=== PATIENT | female | born 1990 | race African-American/Black ===

== ENCOUNTER 2019-05-16 23:55 | Emergency (ER) | payer OTHER ==
[~2019-05-16] VITALS: Ht 167.6 cm; Wt 117.9 kg
[2019-05-17] MEDS: Albuterol ud Inhalation HHN SCH ×3 (00:28→00:50)
[2019-05-17] MEDS: Ipratropium 0.02% Inh Soln 2.5ml UD HHN SCH ×3 (00:28→00:50)
[2019-05-17 00:38] VITALS: BP 105/70
--- NOTE | 2019-05-17 00:39 | NUR ---
ED Nurse Note: Patient walked in to ER due top SOB. AAO x4, VSS at this time. Patient presented with non-labored breathing, O2 sat 98 % on RA.
--- NOTE | 2019-05-17 00:47 | Emergency Room Report ---
History of Present Illness General Chief Complaint: Asthma Source: Patient Present Illness HPI 28-year-old female history of asthma presents with acute shortness of breath, patient 05/11/2019 was seen in ED prescribed prednisone, patient states she still feels difficulty breathing, no nausea no vomiting no chest pain, she states is very difficult to get a deep breath in, she has been taking the steroids and using the inhaler at home. She said severity is moderate, no aggravating factors alleviated with albuterol. Allergies: Coded Allergies: No Known Allergies (Unverified , 05/17/19) Patient History Past Medical History: see triage record Last Menstrual Period: 04/2019 Now: No Reviewed Nursing Documentation: PMH: Agreed; PSxH: Agreed Nursing Documentation-PMH Hx Asthma: Yes Review of Systems All Other Systems: negative except mentioned in HPI Physical Exam Vital Signs Date Time Temp Pulse Resp B/P (MAP) Pulse Ox O2 Delivery O2 Flow Rate FiO2 05/16/19 23:58 98.1 88 18 105/70 (82) 98 Room Air 05/17/19 00:28 21 Sp02 EP Interpretation: reviewed, normal General Appearance: well appearing, no apparent distress, alert Head: normocephalic, atraumatic Eyes: bilateral eye PERRL, bilateral eye EOMI ENT: uvula midline, moist mucus membranes Neck: supple, thyroid normal, supple/symm/no masses Respiratory: no respiratory distress, no retraction, no accessory muscle use, decreased breath sounds - Bilaterally Cardiovascular #1: normal peripheral pulses, regular rate, rhythm, no edema, no gallop, no murmur Gastrointestinal: non tender, soft, no guarding, no rebound Musculoskeletal: normal inspection Neurologic: alert, oriented x3 Psychiatric: mood/affect normal Skin: no rash, warm/dry Medical Decision Making Diagnostic Impression: Primary Impression: Asthma Qualified Codes: J45.41 - Moderate persistent asthma with (acute) exacerbation ER Course She most likely has acute asthma exacerbation Chest x-ray shows no acute cardio pulmonary processes, DuoNeb's divided, and felt better after DuoNeb administration, lungs opened up, wheezing markedly improved. Counseled patient, disposition home with return precautions EKG Diagnostic Results EKG Time: 00:14 EP Interpretation: NSR, rate 95, QTc 424, no acute ST elevations, normal axis Rate: normal Rhythm: NSR ST Segments: no acute changes Chest X-Ray Diagnostic Results Chest X-Ray Diagnostic Results : Chest X-Ray Ordered: Yes # of Views/Limited/Complete: 1 View Indication: Shortness of Breath EP Interpretation: Yes Interpretation: no consolidation, no effusion, no pneumothorax, no acute cardiopulmonary disease Impression: No acute disease Electronically Signed by: Vincenzo Goins MD Last Vital Signs Date Time Temp Pulse Resp B/P (MAP) Pulse Ox O2 Delivery O2 Flow Rate FiO2 05/17/19 00:38 98.1 18 105/70 100 Room Air 21 05/17/19 00:38 84 Disposition: HOME, SELF-CARE Condition: Stable Scripts Albuterol Sulfate* (ALBUTEROL SULFATE MDI*) 8.5 Gm Hfa.aer.ad 2 PUFF INH Q4H PRN for cough/wheezing, #1 EA 0 Refills Prov: Vincenzo Goins MD 05/17/19 Referrals: [facility] Patient Instructions: Asthma, Adult Additional Instructions: The patient was provided with discharge instructions, notified to follow-up with a primary care doctor and or specialist in the next 24-48 hours, and to return to the ED if they have worsening of their symptoms. Please note that this report is being documented using WeGoOut technology. This can lead to erroneous entry secondary to incorrect interpretation by the dictating instrument. Vincenzo Goins MD May 17, 2019 00:47
[2019-05-17] MEDS ORDERED: ALBUTEROL SULF8.5 GM INH (01:13)
[2019-05-17 01:20] VITALS: BP 125/65
--- NOTE | 2019-05-17 02:03 | Diagnostic Imaging Report ---
EXAM: XR Chest, 1 View CLINICAL HISTORY: DYSPNEA TECHNIQUE: Frontal view of the chest. COMPARISON: No relevant prior studies available. FINDINGS/IMPRESSION: No cardiomegaly. There is summation at lung bases. Increased density at lung bases is felt to represent summation with overlying soft tissues. No edema, consolidation or other acute cardiopulmonary findings.
--- NOTE | 2019-05-17 05:12 | NUR ---
ER DISCHARGE NOTE: Patient is cleared to be discharged per ERMD, pt is aox4, on room air, with stable vital signs. pt was given dc and prescription instructions, pt was able to verbalize understanding, pt id band and iv site removed without complications. pt is able to ambulate with steady gait. pt took all belongings.
--- NOTE | 2019-05-18 12:47 | Cardiology Report ---
APPROVED REPORT EKG Measurement Heart [id number] Normal sinus rhythm Right atrial enlargement Nonspecific T wave abnormality Abnormal ECG
== END 2019-05-17 01:20 | disposition home or self-care (01) ==
LOC: EMR 05-17 00:15
DX: J45.41 Moderate persistent asthma with (acute) exacerbation (principal)
CPT/HCPCS: 71045; 93005; 94640; 96360; 99284

== ENCOUNTER 2019-07-12 13:32 | Emergency (ER) | payer MEDICAID, OTHER ==
[~2019-07-12] VITALS: Ht 167.6 cm; Wt 119.3 kg
[~2019-07-12 13:32] MED LIST: ALBUTEROL SULF8.5 GM INH
[2019-07-12 13:54] VITALS: BP 95/72
--- NOTE | 2019-07-12 13:55 | NUR ---
pt ED Nurse Note: pt presents to ED with N/V x 1 month. pt reports that she is 10 weeks and that her RIB BUILDER prescribed her 10 mg of Reglan that she has been taking for N/V but it has stopped working so she hasn't taken it for 3 days. pt also reports being constipated, she was only able to have a small BM a couple days ago. pt last ate some fruit this AM but has otherwise villeda not been able to keep food down. she also reports some throat discomfort from all the vomiting and that the vomitus "appears bloody." pt denies any pain or vaginal bleeding at this time.
[2019-07-12 14:55] LABS: BASOPHILS % (AUTO) 1.2 % (0.0-2.0); HEMATOCRIT 39.9 % (37.0-47.0); HEMOGLOBIN 13.4 G/DL (12.0-16.0); LYMPHOCYTES % (AUTO) 28.8 % (20.0-45.0); MEAN CORPUSCULAR VOLUME 81 FL (80-99); MONOCYTES % (AUTO) 6.2 % (1.0-10.0); NEUTROPHILS % (AUTO) 62.9 % (45.0-75.0); PLATELET COUNT 279 K/UL (150-450); RED BLOOD COUNT 4.95 M/UL (4.20-5.40); RED CELL DISTRIBUTION WIDTH 11.9 % (11.6-14.8); WHITE BLOOD COUNT 5.4 K/UL (4.8-10.8)
[2019-07-12 14:59] LABS: ANION GAP 6 mmol/L (5-15); BLOOD UREA NITROGEN 6 mg/dL (7-18); CALCIUM 9.6 MG/DL (8.5-10.1); CARBON DIOXIDE 27 MMOL/L (21-32); CHLORIDE 103 MMOL/L (98-107); CREATININE 0.6 MG/DL (0.55-1.30); POTASSIUM 3.8 MMOL/L (3.5-5.1); SODIUM 136 MMOL/L (136-145)
[2019-07-12 15:03] LABS: ALANINE AMINOTRANSFERASE 23 U/L (12-78); ALBUMIN 3.1 G/DL (3.4-5.0); ALBUMIN/GLOBULIN RATIO 0.6 (1.0-2.7); ALKALINE PHOSPHATASE 53 U/L (46-116); ASPARTATE AMINO TRANSFERASE 17 U/L (15-37); BILIRUBIN,TOTAL 0.5 MG/DL (0.2-1.0)
[2019-07-12 15:28] LABS: APPEARANCE,URINE CLEAR; BILIRUBIN, URINE NEGATIVE (NEGATIVE); GLUCOSE, URINE (UA) NEGATIVE (NEGATIVE); KETONES,URINE NEGATIVE (NEGATIVE); LEUKOCYTE ESTERASE ,URINE 1+ (NEGATIVE); NITRITE,URINE NEGATIVE (NEGATIVE); PH,URINE 6 (4.5-8.0); PROTEIN,URINE NEGATIVE (NEGATIVE); UROBILINOGEN,URINE NORMAL MG/DL (0.0-1.0)
[2019-07-12 15:34] LABS: COLOR,URINE YELLOW
[2019-07-12] MEDS ORDERED: ONDANSETRON ODT4 MG BC (15:56)
[2019-07-12] MEDS ORDERED: PEPCID AC20 M2 PO (15:56)
[2019-07-12 16:02] VITALS: BP 111/59
[2019-07-12 16:10] VITALS: BP 118/52
--- NOTE | 2019-07-12 17:09 | Emergency Room Report ---
History of Present Illness General Chief Complaint: Vomiting Source: Patient Present Illness HPI 28-year-old G2, P0 presents ED for evaluation. Complaining of vomiting. States that she is about 10 weeks confirmed on ultrasound. Has care. States she is been having multiple bouts of vomiting during this . Was prescribed Reglan by her CLOCK ASSEMBLER but states it is not helping. States in the last few days she started nose notice specks of blood her vomit. denies any abdominal pain. Denies any vaginal bleeding. No other aggravating relieving factors. Denies any other associated symptoms Allergies: Coded Allergies: No Known Allergies (Unverified , 05/17/19) Patient History Past Medical History: asthma Past Surgical History: none Pertinent Family History: none Social History: Denies: smoking, alcohol use, drug use Last Menstrual Period: 03/2019 Now: Yes - 10 weeks : 2 Para: 0 Immunizations: UTD Reviewed Nursing Documentation: PMH: Agreed; PSxH: Agreed Nursing Documentation-PMH Hx Asthma: Yes Review of Systems All Other Systems: negative except mentioned in HPI Physical Exam Vital Signs Date Time Temp Pulse Resp B/P (MAP) Pulse Ox O2 Delivery O2 Flow Rate FiO2 07/12/19 13:50 98.1 99 18 95/72 (80) 96 Room Air Sp02 EP Interpretation: reviewed, normal General Appearance: no apparent distress, alert, GCS 15, non-toxic Head: normocephalic, atraumatic Eyes: bilateral eye normal inspection, bilateral eye PERRL ENT: hearing grossly normal, normal pharynx, no angioedema, normal voice Neck: full range of motion, supple/symm/no masses Respiratory: chest non-tender, lungs clear, normal breath sounds, speaking full sentences Cardiovascular #1: regular rate, rhythm, no edema Cardiovascular #2: 2+ carotid (R), 2+ carotid (L), 2+ radial (R), 2+ radial (L) , 2+ dorsalis pedis (R), 2+ dorsalis pedis (L) Gastrointestinal: normal bowel sounds, non tender, soft, non-distended, no guarding, no rebound Rectal: deferred Genitourinary: normal inspection, no CVA tenderness Musculoskeletal: back normal, gait/station normal, normal range of motion, non- tender Neurologic: alert, oriented x3, responsive, motor strength/tone normal, sensory intact, speech normal Psychiatric: judgement/insight normal, memory normal, mood/affect normal, no suicidal/homicidal ideation Reflexes: 3+ bicep (R), 3+ bicep (L), 3+ tricep (R), 3+ tricep (L), 3+ knee (R) , 3+ knee (L) Lymphatic: no adenopathy Medical Decision Making Diagnostic Impression: Primary Impression: Vomiting during ER Course Hospital Course 28 yo F presents with multiple episodes vomiting. 10 weeks differential diagnosis: gastritis, hypermesis gravidum, dehydration, UTI Clinical course Patient placed on stretcher. On television writer. After initial history and physical I ordered labs, IV fluids, Zofran and pepcid Labs - no leukocytosis, no electrolyte abnormalities, LFTs normal, UA unremarkable Reassessment patient states that she feels better. Tolerating p.o. intake in ED. Discussed findings with patient. Will discharge to home with prescription for Zofran and Pepcid. States she will follow-up with her PMD/CLOCK ASSEMBLER I feel this is a highly complex case requiring extensive working including EKG/ Rhythm strip, Xray/CT/US, Blood/urine lab work, repeat exams while in ED, and administration of strong opiates/narcotics for pain control, admission to hospital or close patient follow up. Diagnosis - vomiting during Stable and discharged to home with prescriptions for pepcid and zofran. Followup with PMD/OBGYN. Return to ED if symptoms recur or worsen Labs Test 07/12/19 14:18 07/12/19 14:56 White Blood Count 5.4 K/UL (4.8-10.8) Red Blood Count 4.95 M/UL (4.20-5.40) Hemoglobin 13.4 G/DL (12.0-16.0) Hematocrit 39.9 % (37.0-47.0) Mean Corpuscular Volume 81 FL (80-99) Mean Corpuscular Hemoglobin 27.0 PG (27.0-31.0) Mean Corpuscular Hemoglobin Concent 33.5 G/DL (32.0-36.0) Red Cell Distribution Width 11.9 % (11.6-14.8) Platelet Count 279 K/UL (150-450) Mean Platelet Volume 6.8 FL (6.5-10.1) Neutrophils (%) (Auto) 62.9 % (45.0-75.0) Lymphocytes (%) (Auto) 28.8 % (20.0-45.0) Monocytes (%) (Auto) 6.2 % (1.0-10.0) Eosinophils (%) (Auto) 1.0 % (0.0-3.0) Basophils (%) (Auto) 1.2 % (0.0-2.0) Sodium Level 136 MMOL/L (136-145) Potassium Level 3.8 MMOL/L (3.5-5.1) Chloride Level 103 MMOL/L (98-107) Carbon Dioxide Level 27 MMOL/L (21-32) Anion Gap 6 mmol/L (5-15) Blood Urea Nitrogen 6 mg/dL (7-18) Creatinine 0.6 MG/DL (0.55-1.30) Estimat Glomerular Filtration Rate > 60 mL/min (>60) Glucose Level 108 MG/DL (74-106) Calcium Level 9.6 MG/DL (8.5-10.1) Total Bilirubin 0.5 MG/DL (0.2-1.0) Aspartate Amino Transf (AST/SGOT) 17 U/L (15-37) Alanine Aminotransferase (ALT/SGPT) 23 U/L (12-78) Alkaline Phosphatase 53 U/L (46-116) Total Protein 8.1 G/DL (6.4-8.2) Albumin 3.1 G/DL (3.4-5.0) Globulin 5.0 g/dL Albumin/Globulin Ratio 0.6 (1.0-2.7) Lipase 75 U/L (73-393) Human Chorionic Gonadotropin, Quant 75914 mIU/mL (1-6) Urine Color Yellow Urine Appearance Clear Urine pH 6 (4.5-8.0) Urine Specific Withams 1.010 (1.005-1.035) Urine Protein Negative (NEGATIVE) Urine Glucose (UA) Negative (NEGATIVE) Urine Ketones Negative (NEGATIVE) Urine Blood 1+ (NEGATIVE) Urine Nitrite Negative (NEGATIVE) Urine Bilirubin Negative (NEGATIVE) Urine Urobilinogen Normal MG/DL (0.0-1.0) Urine Leukocyte Esterase 1+ (NEGATIVE) Urine RBC 5-10 /HPF (0 - 2) Urine WBC 2-4 /HPF (0 - 2) Urine Squamous Epithelial Cells Few /LPF (NONE/OCC) Urine Bacteria Few /HPF (NONE) Urine HCG, Qualitative Positive (NEGATIVE) Last Vital Signs Date Time Temp Pulse Resp B/P (MAP) Pulse Ox O2 Delivery O2 Flow Rate FiO2 07/12/19 16:10 98.1 80 19 118/52 100 Room Air Status: improved Disposition: HOME, SELF-CARE Condition: Stable Scripts Famotidine (PEPCID AC) 20 Mg Tablet 20 MG PO DAILY, #30 TAB Prov: John Chery MD 07/12/19 Ondansetron Odt* (ZOFRAN ODT*) 4 Mg Tab.rapdis 4 MG BC EVERY 6 HOURS PRN for Nausea & Vomiting, #20 TAB 0 Refills Prov: John Chery MD 07/12/19 Patient Instructions: Hyperemesis Gravidarum John Chery MD Jul 12, 2019 17:08
== END 2019-07-12 16:10 | disposition home or self-care (01) ==
LOC: EMR 14:30
DX: O21.9 Vomiting of pregnancy, unspecified (principal); Z3A.10 10 weeks gestation of pregnancy; J45.909 Unspecified asthma, uncomplicated
CPT/HCPCS: 36415; 80053; 81003; 81025; 83690; 84702; 85025; 96361; 96374; 96375; J2405; S0028; Z7502; 99284; J7030

== ENCOUNTER 2019-08-16 12:56 | Emergency (ER) | payer MEDICAID ==
[~2019-08-16] VITALS: Ht 167.6 cm; Wt 106.6 kg
[~2019-08-16 12:56] MED LIST changes: +ONDANSETRON ODT4 MG BC; +PEPCID AC20 M2 PO
[2019-08-16] MEDS ORDERED: Metoclopramide 10mg/2ml Inj IVP ONE (13:15)
--- NOTE | 2019-08-16 13:26 | Emergency Room Report ---
History of Present Illness General Chief Complaint: Complications Source: Patient (Muriel Holguin) Present Illness HPI 28-year-old female with no significant past medical history other than asthma who is G2, , is with history of 1 miscarriage at 5 weeks, here reporting that she is 15 weeks and started having chest pain 3 days ago. Patient reports that chest pain started as she was lying down and changing sides the pain is radiating to the back however denies pain radiation to arm or jaw. Denies history of cardiac issues. Rating her pain 10 out of 10 intermittent and sharp. Has not taken medication for symptom relief. Also reports that she started having lower abdominal cramping this morning however denies vaginal discharge. Patient was last sexually active 1 week ago with same partner. Denies changes in urination, blood in urine, vaginal clotting, diarrhea constipation at this time. Denies blood in her stool. Reports that she has been dealing with lots of vomiting throughout her and takes daily dose of medication. Is compliant with taking her vitamins. Denies fever and chills, fall or injury. Last saw her CYBER SECURITY SYSTEMS ENGINEER on August 04 and reports that everything was within normal limits. Patient has stable vital signs and in no apparent distress. Patient denies leg cramping and tightness, denies shortness of breath when walking. Complains of pleuritic chest pain. Patient is morbidly obese. (Muriel Holguin) Allergies: Coded Allergies: No Known Allergies (Unverified , 05/17/19) Patient History Past Medical History: see triage record Past Surgical History: unable to obtain Pertinent Family History: none Last Menstrual Period: 04/30/2019 Now: Yes : 2 Para: 0 Immunizations: UTD Reviewed Nursing Documentation: PMH: Agreed; PSxH: Agreed (Muriel Holguin) Nursing Documentation-PMH Past Medical History: No History, Except For Hx Cardiac Problems: No Hx Hypertension: No Hx Pacemaker: No Hx Asthma: Yes Hx COPD: No Hx Diabetes: No Hx Cancer: No Hx Gastrointestinal Problems: No Hx Dialysis: No History Of Psychiatric Problem: No Hx Neurological Problems: No Hx Cerebrovascular Accident: No Hx Seizures: No (Muriel Holguin) Review of Systems All Other Systems: negative except mentioned in HPI (Muriel Holguin) Physical Exam Vital Signs Date Time Temp Pulse Resp B/P (MAP) Pulse Ox O2 Delivery O2 Flow Rate FiO2 08/16/19 13:11 98.2 103 16 114/70 (85) 96 Room Air Sp02 EP Interpretation: reviewed, normal General Appearance: no apparent distress, alert, GCS 15, non-toxic Head: normocephalic, atraumatic Eyes: bilateral eye normal inspection, bilateral eye PERRL ENT: hearing grossly normal, normal pharynx, no angioedema, normal voice Neck: full range of motion, supple, thyroid normal, no meningismus, supple/symm /no masses Respiratory: chest non-tender, lungs clear, normal breath sounds, no rhonchi, no respiratory distress, no retraction, no wheezing, speaking full sentences Cardiovascular #1: regular rate, rhythm, no edema, no gallop, no JVD, no murmur , no rub, normal capillary refill Cardiovascular #2: 2+ radial (R), 2+ radial (L), 2+ dorsalis pedis (R), 2+ dorsalis pedis (L) Gastrointestinal: normal bowel sounds, non tender, soft, non-distended, no guarding, no rebound Rectal: deferred Genitourinary: normal inspection, no CVA tenderness Musculoskeletal: back normal, normal range of motion, no calf tenderness, gait/ station normal, non-tender Neurologic: alert, motor strength/tone normal, oriented x3, sensory intact, responsive, speech normal Psychiatric: judgement/insight normal, memory normal, mood/affect normal, no suicidal/homicidal ideation Skin: no rash Lymphatic: no adenopathy (Muriel Holguin) Medical Decision Making PA Attestation All my diagnosis and treatment plans were reviewed ad discussed with my supervising physician Dr. Jones (Muriel Holguin) Diagnostic Impression: Primary Impression: Pleuritic chest pain Additional Impressions: Abdominal pain during Left against medical advice ER Course 28-year-old female with no significant past medical history other than asthma who is G2, , is with history of 1 miscarriage at 5 weeks, here reporting that she is 15 weeks and started having chest pain 3 days ago. Patient reports that chest pain started as she was lying down and changing sides the pain is radiating to the back however denies pain radiation to arm or jaw. Denies history of cardiac issues. Rating her pain 10 out of 10 intermittent and sharp. Has not taken medication for symptom relief. Also reports that she started having lower abdominal cramping this morning however denies vaginal discharge. Patient was last sexually active 1 week ago with same partner. Denies changes in urination, blood in urine, vaginal clotting, diarrhea constipation at this time. Denies blood in her stool. Reports that she has been dealing with lots of vomiting throughout her and takes daily dose of medication. Is compliant with taking her vitamins. Denies fever and chills, fall or injury. Last saw her CYBER SECURITY SYSTEMS ENGINEER on August 04 and reports that everything was within normal limits. Patient has stable vital signs and in no apparent distress. Patient denies leg cramping and tightness, denies shortness of breath when walking. Complains of pleuritic chest pain. Patient is morbidly obese. Ddx considered but are not limited to: Pulmonary embolism, chest pain unspecified, AR, congestive heart failure, hypertension during , uterine bleeding during , ectopic , threatened , spontaneous , abdominal pain during Vital signs: are WNL, pt. is afebrile H&PE are most consistent with: pleuritic chest pain, abdominal pain during ORDERS: CBC, CMP, UA, beta-hCG, chest pain work-up, OB ultrasound, venous duplex ultrasound, d-dimer, troponin, BNP, CTA was originally ordered after consulting with . After my medical discussion with Dr Jones, due to patient morbid obesity, status, pleuritic chest pain, d-dimer of 0.85 , and BNP of 350 it was decided to have imaging done to rule out pulmonary embolism however VQ scan is not available at this time and patient is a candidate for CT angiogram with contrast. Patient was explained the risks of getting a CT angiogram as well as the risks of not getting the CT angiogram and decided to sign AGAINST MEDICAL ADVICE after consulting with her CYBER SECURITY SYSTEMS ENGINEER over the phone patient is going back to [facility] to see her regular doctor patient has full judgment, in no apparent distress, and not under the influence of any substances or alcohol when making this judgment. ED INTERVENTIONS: NS bolus, Reglan DISCHARGE: At this time pt. is stable for d/c to home. Will provide printed patient care instructions, and any necessary prescriptions. Care plan and follow up instructions have been discussed with the patient prior to discharge. Patient left AGAINST MEDICAL ADVICE (Muriel Holguin) ER Course Patient initially refused CTA. I discussed risks and benefits with the patient of CTA. I told her that there is a risk of if we do not know that she does not have a blood clot. She discussing this with her significant other. Patient stated she had more questions. I answered her questions. She wanted a second opinion. I stated that there were no other doctors here. I still felt that she needed to have a CT angiogram and explained risks of if she did not have this test done. She is refusing to have the CT angiogram done and is signing out AGAINST MEDICAL ADVICE. Given labs, EKG and u/s results. (Marcio Jones MD) EKG Diagnostic Results Rate: normal Rhythm: NSR ST Segments: no acute changes Other Impression No acute ST changes (Muriel Holguin) CT/MRI/US Diagnostic Results CT/MRI/US Diagnostic Results #1: Imaging Test Ordered: OB US Impression FINDINGS: Limitations: Limited anatomic survey. Gestation: Viable IUP measuring 16 weeks 4 days by ultrasound measurements. heart rate of 148 beats/minute. Placenta/amniotic fluid: Placenta is posterior and fundal. No retroplacental hemorrhage. Uterus/cervix: Uterus measures 14.3 x 6.8 x 9.7 cm. Ovaries: Right ovary measures 4.5 x 1.9 cm. Left ovary not well visualized. IMPRESSION: Viable IUP measuring 16 weeks 4 days by ultrasound measurements. CT/MRI/US Diagnostic Results #2: Imaging Test Ordered: venous duplex Bilateral LE Impression FINDINGS: Right deep veins: Unremarkable. No DVT in the right common femoral, femoral, proximal deep femoral or popliteal veins. The veins demonstrate normal color flow, are normally compressible, with normal phasic flow and/or augmentation response. Right superficial veins: Unremarkable. No thrombus in the visualized right great saphenous vein. Left deep veins: Unremarkable. No DVT in the left common femoral, femoral, proximal deep femoral or popliteal veins. The veins demonstrate normal color flow, are normally compressible, with normal phasic flow and/or augmentation response. Left superficial veins: Unremarkable. No thrombus in the visualized left great saphenous vein. Soft tissues: No acute findings. IMPRESSION: No DVT demonstrated. (Muriel Holguin) Last Vital Signs Date Time Temp Pulse Resp B/P (MAP) Pulse Ox O2 Delivery O2 Flow Rate FiO2 08/16/19 13:11 98.2 103 16 114/70 (85) 96 Room Air (Muriel Holguin) Last Vital Signs Date Time Temp Pulse Resp B/P (MAP) Pulse Ox O2 Delivery O2 Flow Rate FiO2 08/16/19 17:58 98.0 78 16 118/71 99 Room Air Status: improved (Marcio Jones MD) Disposition: AGAINST MEDICAL ADVICE Condition: Serious Muriel Holguin Aug 16, 2019 13:26 Marcio Jones MD Aug 16, 2019 16:28
[2019-08-16 14:07] LABS: BASOPHILS % (AUTO) 0.8 % (0.0-2.0); EOSINOPHILS % (AUTO) 0.8 % (0.0-3.0); HEMOGLOBIN 12.3 G/DL (12.0-16.0); LYMPHOCYTES % (AUTO) 23.8 % (20.0-45.0); MEAN CORPUSCULAR VOLUME 80 FL (80-99); MONOCYTES % (AUTO) 5.4 % (1.0-10.0); NEUTROPHILS % (AUTO) 69.2 % (45.0-75.0); PLATELET COUNT 282 K/UL (150-450); RED BLOOD COUNT 4.53 M/UL (4.20-5.40); WHITE BLOOD COUNT 6.7 K/UL (4.8-10.8)
[2019-08-16 14:19] LABS: ANION GAP 5 mmol/L (5-15); BLOOD UREA NITROGEN 6 mg/dL (7-18); CALCIUM 8.9 MG/DL (8.5-10.1); CARBON DIOXIDE 27 MMOL/L (21-32); CHLORIDE 103 MMOL/L (98-107); CREATININE 0.6 MG/DL (0.55-1.30); SODIUM 135 MMOL/L (136-145)
[2019-08-16 14:24] LABS: ALANINE AMINOTRANSFERASE 21 U/L (12-78); ALBUMIN 2.6 G/DL (3.4-5.0); ALBUMIN/GLOBULIN RATIO 0.6 (1.0-2.7); ALKALINE PHOSPHATASE 50 U/L (46-116); ASPARTATE AMINO TRANSFERASE 18 U/L (15-37); BILIRUBIN,TOTAL 0.4 MG/DL (0.2-1.0)
[2019-08-16 15:26] VITALS: BP 120/76
[2019-08-16] MEDS ORDERED: Omnipaue 350mg/ml 100ml vial INJ PRN (15:30)
--- NOTE | 2019-08-16 15:44 | Diagnostic Imaging Report ---
EXAM: US Duplex Bilateral Lower Extremity Veins CLINICAL HISTORY: DVT TECHNIQUE: Real-time duplex ultrasound scan of the bilateral lower extremity veins integrating B-mode two-dimensional vascular structure, Doppler spectral analysis, color flow Doppler imaging and compression. COMPARISON: No relevant prior studies available. FINDINGS: Right deep veins: Unremarkable. No DVT in the right common femoral, femoral, proximal deep femoral or popliteal veins. The veins demonstrate normal color flow, are normally compressible, with normal phasic flow and/or augmentation response. Right superficial veins: Unremarkable. No thrombus in the visualized right great saphenous vein. Left deep veins: Unremarkable. No DVT in the left common femoral, femoral, proximal deep femoral or popliteal veins. The veins demonstrate normal color flow, are normally compressible, with normal phasic flow and/or augmentation response. Left superficial veins: Unremarkable. No thrombus in the visualized left great saphenous vein. Soft tissues: No acute findings. IMPRESSION: No DVT demonstrated.
[2019-08-16 15:51] LABS: APPEARANCE,URINE CLEAR; BILIRUBIN, URINE NEGATIVE (NEGATIVE); COLOR,URINE PALE YELLOW; GLUCOSE, URINE (UA) NEGATIVE (NEGATIVE); KETONES,URINE NEGATIVE (NEGATIVE); LEUKOCYTE ESTERASE ,URINE NEGATIVE (NEGATIVE); NITRITE,URINE NEGATIVE (NEGATIVE); PH,URINE 8 (4.5-8.0); PROTEIN,URINE NEGATIVE (NEGATIVE); UROBILINOGEN,URINE 1 MG/DL (0.0-1.0)
--- NOTE | 2019-08-16 16:27 | Diagnostic Imaging Report ---
EXAM: US First Trimester, Transabdominal CLINICAL HISTORY: PAIN TECHNIQUE: Real-time transabdominal obstetrical ultrasound of the maternal pelvis and a first trimester with image documentation. COMPARISON: No relevant prior studies available. FINDINGS: Limitations: Limited anatomic survey. Gestation: Viable IUP measuring 16 weeks 4 days by ultrasound measurements. heart rate of 148 beats/minute. Placenta/amniotic fluid: Placenta is posterior and fundal. No retroplacental hemorrhage. Uterus/cervix: Uterus measures 14.3 x 6.8 x 9.7 cm. Ovaries: Right ovary measures 4.5 x 1.9 cm. Left ovary not well visualized. IMPRESSION: Viable IUP measuring 16 weeks 4 days by ultrasound measurements.
[2019-08-16 17:58] VITALS: BP 118/71
== END 2019-08-16 17:58 | disposition left against medical advice (07) ==
LOC: EMR 13:30
DX: O26.892 Other specified pregnancy related conditions, second trimester (principal); Z3A.15 15 weeks gestation of pregnancy; R10.9 Unspecified abdominal pain; R07.9 Chest pain, unspecified; O21.9 Vomiting of pregnancy, unspecified
CPT/HCPCS: 36415; 76805; 80053; 81003; 83880; 84484; 84702; 85025; 85379; 86850; 86900; 86901; 93005; 93970; 96361; 96374; 96375; J2765; J7030; S0028; Z7502; 99284